=== PATIENT | female | born 1995 | race Caucasian/White ===

== ENCOUNTER 2018-02-27 12:32 | Emergency (ER) | payer BC ==
[2018-02-27 13:03] VITALS: BP 117/50
--- NOTE | 2018-02-27 13:26 | UC ---
Lower Extremity/Ankle HPI - HPI Summary HPI Summary: right foot pain x 1 day hit her right foot to the wall yesterday as she was playing with her dog + pain and swelling right foot / 4th and 5th metatarsal - History of Current Complaint Chief Complaint: UCLowerExtremity Stated Complaint: RT FOOT INJURY Time Seen by Provider: 02/27/18 12:54 Hx Obtained From: Patient Hx Last Menstrual Period: unknown ?: No Onset/Duration: Sudden Onset, Lasting Days - 1, Still Present Severity Initially: Moderate Severity Currently: Moderate Pain Intensity: 3 Aggravating Factor(s): Standing, Ambulation Alleviating Factor(s): Rest, Elevation, Ice Able to Bear Weight: Yes - Allergies/Home Medications Allergies/Adverse Reactions: Allergies Allergy/AdvReac Type Severity Reaction Status Date / Time latex Allergy Difficulty Verified 02/27/18 12:56 Breathing/Wheezing narcotics AdvReac See Comment Uncoded 02/27/18 12:56 Home Medications: Home Medications Acetaminophen [Acetaminophen Extra Strength] 500 mg PO ONCE PRN 02/27/18 [ History Confirmed 02/27/18] Levonorgestrel (Iud) [Mirena IUD] 20 mcg IU ONCE 02/27/18 [History Confirmed ] PMH/Surg Hx/FS Hx/Imm Hx Previously Healthy: Yes - Surgical History Surgical History: None - Family History Known Family History: Negative: Diabetes - Social History Alcohol Use: None Substance Use Type: None Smoking Status (MU): Never Smoked Tobacco Review of Systems Constitutional: Negative Skin: Negative Eyes: Negative ENT: Negative Is Patient Immunocompromised?: No All Other Systems Reviewed And Are Negative: Yes Physical Exam Triage Information Reviewed: Yes Appearance: Well-Appearing, No Pain Distress, Well-Nourished Vital Signs: Initial Vital Signs Temp 98.5 F 02/27/18 12:57 Pulse 64 02/27/18 12:57 Resp 14 02/27/18 12:57 BP 117/50 02/27/18 12:57 Pulse Ox 100 02/27/18 12:57 Vital Signs Reviewed: Yes Eye Exam: Normal Eyes: Positive: Conjunctiva Clear ENT: Positive: Normal ENT inspection, Hearing grossly normal, Pharynx normal Neck: Positive: Supple, Nontender, No Lymphadenopathy Respiratory: Positive: Chest non-tender, Lungs clear, Normal breath sounds Cardiovascular: Positive: RRR, No Murmur, Pulses Normal Musculoskeletal: Positive: Other: - right foot : + swelling, mild brusing , + tenderness distal 4th and 5th metatarsal Diagnostics - Laboratory Diagnostic Studies Completed/Ordered: xray right foot : IMPRESSION: OBLIQUE NONDISPLACED FRACTURE OF THE PROXIMAL PHALANX OF THE FIFTH DIGIT Lower Extremity Course/Dx - Differential Dx/Diagnosis Provider Diagnoses: fracture right 5th proximal phalangs Discharge - Sign-Out/Discharge Documenting (check all that apply): Patient Departure All imaging exams completed and their final reports reviewed: Yes - Discharge Plan Condition: Stable Disposition: HOME Patient Education Materials: Toe Fracture (ED) Referrals: No Primary Care Phys,NOPCP [Primary Care Provider] - Franck Moore MD [Medical Doctor] - - Billing Disposition and Condition Condition: STABLE Disposition: Home
--- NOTE | 2018-02-27 13:31 | RAD ---
HISTORY: hit her right foot to a wall COMPARISONS: None VIEWS: 3 , Frontal, lateral, and oblique views of the right foot FINDINGS: BONE DENSITY: Normal. BONES: There is an oblique, nondisplaced fracture of the proximal phalanx of the fifth digit JOINTS: There is no arthropathy. ALIGNMENT: There is no dislocation. SOFT TISSUES: Unremarkable. OTHER FINDINGS: None. IMPRESSION: OBLIQUE NONDISPLACED FRACTURE OF THE PROXIMAL PHALANX OF THE FIFTH DIGIT
== END 2018-02-27 13:47 | disposition home or self-care (01) ==
LOC: UCCORT 12:32
DX: S92.514A Nondisplaced fracture of proximal phalanx of right lesser toe(s), initial encounter for closed fracture (principal); W22.8XXA Striking against or struck by other objects, initial encounter; Y93.89 Activity, other specified; Y92.9 Unspecified place or not applicable; Z88.5 Allergy status to narcotic agent
CPT/HCPCS: 99202; G0463

== ENCOUNTER 2018-05-12 19:21 | Emergency (ER) | payer BC ==
[2018-05-12 20:18] VITALS: BP 107/48
--- NOTE | 2018-05-12 20:42 | UC ---
Ear Complaint HPI - HPI Summary HPI Summary: BILAT EAR discomfort for quite some time ; approx 1 mo. Pt unclear what is causing this. Denies hearing issues. - History of Current Complaint Chief Complaint: UCEar Stated Complaint: BILATERAL EAR PAIN Time Seen by Provider: 05/12/18 20:31 Hx Obtained From: Patient Hx Last Menstrual Period: unknown ?: No Pain Intensity: 2 Pain Scale Used: 0-10 Numeric - Allergies/Home Medications Allergies/Adverse Reactions: Allergies Allergy/AdvReac Type Severity Reaction Status Date / Time latex Allergy Difficulty Verified 02/27/18 12:56 Breathing/Wheezing narcotics AdvReac Vomiting, Uncoded 05/12/18 20:07 prostration PMH/Surg Hx/FS Hx/Imm Hx Previously Healthy: Yes - Surgical History Surgical History: Yes Surgery Procedure, Year, and Place: 7 neg breast bx - Family History Known Family History: Negative: Diabetes - Social History Alcohol Use: Rare Substance Use Type: None Smoking Status (MU): Never Smoked Tobacco Review of Systems All Other Systems Reviewed And Are Negative: Yes Constitutional: Positive: Negative ENT: Positive: Ear Ache. Negative: Dental Pain, Sore Throat, Nasal Discharge Physical Exam Triage Information Reviewed: Yes Appearance: Well-Appearing Vital Signs: Initial Vital Signs Temp 98.4 F 05/12/18 20:09 Pulse 48 05/12/18 20:09 Resp 18 05/12/18 20:09 BP 107/48 05/12/18 20:09 Pulse Ox 100 05/12/18 20:09 Vital Signs Reviewed: Yes ENT: Positive: Pharynx normal, TMs normal - after lavage, Other - impacted cerumen bilat.. Negative: Nasal congestion Neck: Positive: No Lymphadenopathy Ear Complaint Course/Dx - Course Course Of Treatment: IMpacted cerumen bilat. Ear lavage performed bilat. improved discomfort. - Differential Dx/Diagnosis Differential Diagnosis/HQI/PQRI: Otitis Externa, Otitis Media Provider Diagnosis: Impacted cerumen of both ears Discharge - Sign-Out/Discharge Documenting (check all that apply): Patient Departure All imaging exams completed and their final reports reviewed: No Studies - Discharge Plan Condition: Good Disposition: HOME Patient Education Materials: Cerumen Impaction (ED) Referrals: No Primary Care Phys,NOPCP [Primary Care Provider] - Additional Instructions: Try not to use Qtips - Billing Disposition and Condition Condition: GOOD Disposition: Home
== END 2018-05-12 21:24 | disposition home or self-care (01) ==
LOC: UCCORT 19:21
DX: H61.23 Impacted cerumen, bilateral (principal); Z88.5 Allergy status to narcotic agent; Z91.040 Latex allergy status
CPT/HCPCS: 99213; G0463